=== PATIENT | female | born 1970 | race Caucasian/White ===

== ENCOUNTER 2017-06-21 11:51 | Emergency (ER) | payer OTHER ==
[2017-06-21] MEDS ORDERED: Aspirin Low Dose CHEW TAB* 81 MG PO ONE (12:17)
[2017-06-21 12:58] LABS: ABS Basophils 0 10^3/ul (0-0.2); ABS Eosinophils 0.1 10^3/ul (0-0.6); ABS Lymphocytes 1.3 10^3/ul (1.0-4.8); ABS Monocytes 0.5 10^3/ul (0-0.8); ABS Nucleated RBC 0 10^3/ul; Eosinophil % 2.3 % (0-6); Hematocrit 44 % (35-47); Hemoglobin 14.6 g/dl (12.0-16.0); Lymphocyte % 26.1 % (25-47); Mean Corpuscular HGB Conc 34 g/dl (31-36); Mean Corpuscular Hemoglobin 30 pg (27-31); Mean Corpuscular Volume 91 fL (80-97); Mean Platelet Volume 9 um3 (7.4-10.4); Nucleated Red Blood Cells % 0; Platelet Count 266 10^3/ul (150-450); Red Blood Count 4.79 10^6/ul (4.0-5.4); Red Cell Distribution Width 14 % (10.5-15); White Blood Count 4.9 10^3/ul (3.5-10.8)
--- NOTE | 2017-06-21 13:06 | RAD ---
Indication: Chest pain. Comparison: No relevant prior exams available on the [facility] [place]ACS for comparison. Technique: Upright AP 1235 hours Report: Clear lungs and pleural spaces. Negative for pneumothorax. The heart, pulmonary vasculature, and mediastinal contours are unremarkable. Unremarkable osseous structures and soft tissue contours. IMPRESSION: No evidence for acute intrathoracic disease.
[2017-06-21 13:07] LABS: INR 0.9 (0.77-1.02)
[2017-06-21 13:16] LABS: EGFR Non-African American 102.2 (>60)
[2017-06-21 15:11] VITALS: BP 138/90
--- NOTE | 2017-07-09 11:29 | ED ---
HPI Chest Pain - HPI Summary HPI Summary: Patient is an otherwise healthy 46-year-old female who presents to the ED with chief complaint of chest pain 30 minutes. She endorses resting while first experiencing the chest pain. She endorses significant anxiety over the episode. Denies any cardiac history. Denies family history. She takes no medications. She denies any shortness of breath, coughing, upper respiratory illness recently or other contributing factors. Symptoms are aggravated by nothing and alleviated by nothing. She is resting comfortably on arrival. She does not have a history of anxiety. She states she would just like to get " this checked out". She denies any recent travel, calf pain, OCP use, or smoking history. Has never had a blood clot. Pain is most notably located over the left anterior and does not radiate into the jaw or the arm. - History of Current Complaint Chief Complaint: EDChestPainROMI Time Seen by Provider: 06/21/17 12:09 Hx Obtained From: Patient Onset/Duration: Started Hours Ago Timing: Constant Initial Severity: Moderate Current Severity: Moderate Pain Intensity: 3 Pain Scale Used: 0-10 Numeric Chest Pain Location: Discrete at:, Left Anterior Aggravating Factor(s): Nothing Alleviating Factor(s): Nothing Associated Signs and Symptoms: Positive: Chest Pain - Risk Factors Pulmonary Embolism Risk Factors: Negative TAD Risk Factors: Negative - Allergy/Home Medications Allergies/Adverse Reactions: Allergies Allergy/AdvReac Type Severity Reaction Status Date / Time MS Pregabalin [From Lyrica] Allergy Rash Verified 02/08/16 15:59 PMH/Surg Hx/FS Hx/Imm Hx Previously Healthy: Yes - Surgical History Surgery Procedure, Year, and Place: tubal ligation - Immunization History Hx Pertussis Vaccination: No Immunizations Up to Date: Unable to Obtain/Confirm Infectious Disease History: No Infectious Disease History: Denies: History Other Infectious Disease, Traveled Outside the [place] in Last 30 Days - Family History Known Family History: Positive: Blood Disorder - no immune disorders in FHX - Social History Occupation: Employed Full-time Lives: With Family Alcohol Use: Weekly Alcohol Amount: 3 x's per week approx Hx Substance Use: Yes Substance Use Type: Reports: None Smoking Status (MU): Never Smoked Tobacco Review of Systems Constitutional: Negative Negative: Fever, Chills, Fatigue, Skin Diaphoresis Eyes: Negative Positive: Chest Pain Respiratory: Negative Gastrointestinal: Negative Positive: no symptoms reported, see HPI Musculoskeletal: Negative Neurological: Negative Positive: Anxious All Other Systems Reviewed And Are Negative: Yes Physical Exam Triage Information Reviewed: Yes Vital Signs On Initial Exam: Initial Vitals Temp Pulse Resp BP Pulse Ox 98.6 F 98 18 154/93 100 06/21/17 11:59 06/21/17 11:59 06/21/17 11:59 06/21/17 11:59 06/21/17 11:59 Vital Signs Reviewed: Yes Appearance: Positive: Well-Appearing, Well-Nourished Skin: Positive: Warm, Skin Color Reflects Adequate Perfusion Head/Face: Positive: Normal Head/Face Inspection Eyes: Positive: EOMI, RAFAT, Conjunctiva Clear Neck: Positive: Supple, No Lymphadenopathy Respiratory/Lung Sounds: Positive: Clear to Auscultation, Breath Sounds Present Cardiovascular: Positive: RRR, Pulses are Symmetrical in both Upper and Lower Extremities Musculoskeletal: Positive: Normal, Strength/ROM Intact Neurological: Positive: Speech Normal Psychiatric: Positive: Anxious Diagnostics - Vital Signs Vital Signs Temp Pulse Resp BP Pulse Ox 06/21/17 15:10 97.3 F 79 18 138/90 99 06/21/17 15:07 138/90 06/21/17 15:00 16 06/21/17 14:30 74 22 139/96 100 06/21/17 14:11 74 141/96 100 06/21/17 14:00 70 18 100 06/21/17 13:30 74 19 147/95 100 06/21/17 13:00 73 15 149/99 98 06/21/17 12:31 72 13 155/98 100 06/21/17 12:28 10 06/21/17 11:59 98.6 F 98 18 154/93 100 - Laboratory Lab Results: Lab Results 06/21/17 06/21/17 06/21/17 Range/Units 12:50 12:50 12:50 WBC 4.9 (3.5-10.8) 10^3/ul RBC 4.79 (4.0-5.4) 10^6/ul Hgb 14.6 (12.0-16.0) g/dl Hct 44 (35-47) % MCV 91 (80-97) fL MCH 30 (27-31) pg MCHC 34 (31-36) g/dl RDW 14 (10.5-15) % Plt Count 266 (150-450) 10^3/ul MPV 9 (7.4-10.4) um3 Neut % (Auto) 61.4 (38-83) % Lymph % (Auto) 26.1 (25-47) % [facility] % (Auto) 9.8 H (1-9) % Eos % (Auto) 2.3 (0-6) % Baso % (Auto) 0.4 (0-2) % Absolute Neuts (auto) 3.0 (1.5-7.7) 10^3/ul Absolute Lymphs (auto) 1.3 (1.0-4.8) 10^3/ul Absolute Monos (auto) 0.5 (0-0.8) 10^3/ul Absolute Eos (auto) 0.1 (0-0.6) 10^3/ul Absolute Basos (auto) 0 (0-0.2) 10^3/ul Absolute Nucleated RBC 0 10^3/ul Nucleated RBC % 0 INR (Anticoag Therapy) 0.90 (0.77-1.02) APTT 25.9 L (26.0-36.3) seconds Sodium (133-145) mmol/L Potassium (3.5-5.0) mmol/L Chloride (101-111) mmol/L Carbon Dioxide (22-32) mmol/L Anion Gap (2-11) mmol/L BUN (6-24) mg/dL Creatinine (0.51-0.95) mg/dL Est GFR ( Amer) (>60) Est GFR (Non-Af Amer) (>60) BUN/Creatinine Ratio (8-20) Glucose (70-100) mg/dL Lactic Acid (0.5-2.0) mmol/L Calcium (8.6-10.3) mg/dL Magnesium (1.9-2.7) mg/dL Total Bilirubin (0.2-1.0) mg/dL AST (13-39) U/L ALT (7-52) U/L Alkaline Phosphatase (34-104) U/L Total Creatine Kinase (10-223) U/L CK-MB (CK-2) (0.6-6.3) ng/mL Myoglobin (14.3-65.8) ng/mL Troponin I (<0.04) ng/mL B-Natriuretic Peptide 22 ( - 100) pg/mL Total Protein (6.4-8.9) g/dL Albumin (3.2-5.2) g/dL Globulin (2-4) g/dL Albumin/Globulin Ratio (1-3) TSH (0.34-5.60) mcIU/mL Thyroxine (T4) (6.09-12.23) mcg/mL Beta HCG, Quant mIU/mL 06/21/17 06/21/17 Range/Units 12:50 12:50 WBC (3.5-10.8) 10^3/ul RBC (4.0-5.4) 10^6/ul Hgb (12.0-16.0) g/dl Hct (35-47) % MCV (80-97) fL MCH (27-31) pg MCHC (31-36) g/dl RDW (10.5-15) % Plt Count (150-450) 10^3/ul MPV (7.4-10.4) um3 Neut % (Auto) (38-83) % Lymph % (Auto) (25-47) % [facility] % (Auto) (1-9) % Eos % (Auto) (0-6) % Baso % (Auto) (0-2) % Absolute Neuts (auto) (1.5-7.7) 10^3/ul Absolute Lymphs (auto) (1.0-4.8) 10^3/ul Absolute Monos (auto) (0-0.8) 10^3/ul Absolute Eos (auto) (0-0.6) 10^3/ul Absolute Basos (auto) (0-0.2) 10^3/ul Absolute Nucleated RBC 10^3/ul Nucleated RBC % INR (Anticoag Therapy) (0.77-1.02) APTT (26.0-36.3) seconds Sodium 136 (133-145) mmol/L Potassium 4.0 (3.5-5.0) mmol/L Chloride 104 (101-111) mmol/L Carbon Dioxide 28 (22-32) mmol/L Anion Gap 4 (2-11) mmol/L BUN 15 (6-24) mg/dL Creatinine 0.63 (0.51-0.95) mg/dL Est GFR ( Amer) 131.4 (>60) Est GFR (Non-Af Amer) 102.2 (>60) BUN/Creatinine Ratio 23.8 H (8-20) Glucose 100 (70-100) mg/dL Lactic Acid 0.7 (0.5-2.0) mmol/L Calcium 9.2 (8.6-10.3) mg/dL Magnesium 2.2 (1.9-2.7) mg/dL Total Bilirubin 0.40 (0.2-1.0) mg/dL AST 19 (13-39) U/L ALT 20 (7-52) U/L Alkaline Phosphatase 79 (34-104) U/L Total Creatine Kinase 78 (10-223) U/L CK-MB (CK-2) 1.2 (0.6-6.3) ng/mL Myoglobin 20.4 (14.3-65.8) ng/mL Troponin I 0.00 (<0.04) ng/mL B-Natriuretic Peptide ( - 100) pg/mL Total Protein 6.7 (6.4-8.9) g/dL Albumin 4.1 (3.2-5.2) g/dL Globulin 2.6 (2-4) g/dL Albumin/Globulin Ratio 1.6 (1-3) TSH 1.60 (0.34-5.60) mcIU/mL Thyroxine (T4) 5.57 L (6.09-12.23) mcg/mL Beta HCG, Quant 1.62 mIU/mL Result Diagrams: 06/21/17 12:50 06/21/17 12:50 Lab Statement: Any lab studies that have been ordered have been reviewed, and results considered in the medical decision making process. Chest Pain Course/Dx - Course Course Of Treatment: During the course of treatment the patient is evaluated for chest pain. She denies any chest pain currently, but experienced chest pain 30 minutes prior to arrival for approximately 30 minutes. She has no history of cardiac events. She takes no medications. Has no history of anxiety. She is slightly anxious during physical exam. No acute findings on physical exam, lungs clear to auscultation bilaterally and regular rate and rhythm. All labs obtained and within normal limits except for a slightly low thyroid study. Troponin 0.00. Chest x-ray shows no acute findings. The patient is made aware of all results it is okay for discharge at this time. For any worsening or changing symptoms, she will return to the ED. She will also follow up with her PCP this week. I am not concerned over a CO, PE or any other more emergent cardiac event at this time. - Chest Pain Differential Diagnosis/HQI/PQRI: Angina, Chest Wall, Pulmonary Embolism - Diagnoses Provider Diagnoses: Chest pain Discharge - Discharge Plan Condition: Stable Disposition: HOME Patient Education Materials: Chest Pain (ED) Referrals: Estephanie Palomo MD [Primary Care Provider] - Additional Instructions: Please follow-up with your PCP All lab work looked okay today Your blood pressure was stable
== END 2017-06-21 15:11 | disposition home or self-care (01) ==
LOC: ED 11:51
DX: R07.9 Chest pain, unspecified (principal); F41.9 Anxiety disorder, unspecified
CPT/HCPCS: 36415; 71045; 80053; 82550; 82553; 83605; 83735; 83874; 83880; 84436; 84443; 84484; 84702; 85025; 85610; 85730; 93005; 99282; A9270-GY

== ENCOUNTER → 2017-09-19 10:24 | Day surgery (SDC) | payer OTHER ==
[~2017-09-19 10:24] MED LIST: Buffered Lidocaine 0.9% SYRIN* 5 ML/SYR SYRINGE INTRADERM ONE; Lidocaine 2% PF * 5 ML VIAL ONE; Midazolam* 1 MG/ML 2 ML VIAL (2 MG) ONE; Propofol* 10 MG/ML 20 ML BTL IV PUSH ONE; ceFAZolin 2 GM PREMIX (*) 2 GM/50 ML BAG IVPB ONE; fentaNYL* 50 MCG/ML 2 ML VIAL (100 MCG VIAL) ONE
[2017-09-19 10:52] VITALS: BP 155/112
== END | disposition home or self-care (01) ==
LOC: OR 10:24
PROVIDERS: ATTEND Podiatrist
DX: M20.12 Hallux valgus (acquired), left foot (principal); Z53.9 Procedure and treatment not carried out, unspecified reason
CPT/HCPCS: J0690; J2250; J2704; J3010

== ENCOUNTER 2017-09-19 11:42 | Emergency (ER) | payer OTHER ==
[2017-09-19] MEDS ORDERED: LORazepam TAB(*) 1 MG PO ONE (12:27)
[2017-09-19 14:53] VITALS: BP 170/111
--- NOTE | 2017-09-19 21:42 | ED ---
Lei Pope Natalie, scribed for Ramon Rowan MD on 09/19/17 at 1232 . Hypertension - HPI Summary HPI Summary: The pt is a 46 y/o F presenting to the ED c/o dizziness and anxiety attack, causing a hypertensive episode this morning. She was on the operation floor for a bunion surgery, but her BP was too high, and she was sent to the ED before the surgery. She states she is more relaxed in the ED, but her BP is still elevated. She is not experiencing any other symptoms at the moment. During her pre-op visit, her first BP reading was high, and the second was normal. She does not usually have high blood pressure, but she has had similar episodes prior to hip surgery. She is not currently being treated for HTN by her PCP. The pt has a hx of anxiety without medication. - History of Current Complaint Chief Complaint: EDHypertension Stated Complaint: BP ISSUE Time Seen by Provider: 09/19/17 12:09 Hx Obtained From: Patient Onset/Duration: Started Minutes Ago, Still Present Timing: Constant Aggravating Factor(s): Other: - anxiety before surgery Associated Signs & Symptoms: Anxiety/Stress, Dizziness Related Hx: Similar Episode - prior to hip surgery and pre-op visit - Allergies/Home Medications Allergies/Adverse Reactions: Allergies Allergy/AdvReac Type Severity Reaction Status Date / Time pregabalin [From Lyrica] Allergy Rash Verified 09/19/17 10:39 Home Medications: Home Medications NK [No Home Medications Reported] 09/19/17 [History Confirmed 09/19/17] PMH/Surg Hx/FS Hx/Imm Hx Respiratory History: Reports: Hx Asthma - pneumonia recently occas wheezing Musculoskeletal History: Reports: Hx Arthritis - osteo generalized, Other Musculoskeletal History - bunion on left foot Sensory History: Reports: Hx Contacts or Glasses Denies: Hx Hearing Aid Opthamlomology History: Reports: Hx Contacts or Glasses Psychiatric History: Reports: Hx Anxiety - no meds - Surgical History Surgery Procedure, Year, and Place: tubal ligation 2011. right total hip replacement 2017. cervical cerclage 05/2011 Hx Anesthesia Reactions: No Infectious Disease History: No Infectious Disease History: Denies: History Other Infectious Disease, Traveled Outside the [place] in Last 30 Days - Family History Known Family History: Positive: Blood Disorder - no immune disorders in FHX - Social History Alcohol Use: Weekly Alcohol Amount: 3 x's per week approx Hx Substance Use: Yes Substance Use Type: Reports: None Smoking Status (MU): Former Smoker Review of Systems Neurological: Other - dizziness Positive: Anxious All Other Systems Reviewed And Are Negative: Yes Physical Exam - Summary Physical Exam Summary: Appearance: The patient is well-nourished in no acute distress and in no acute pain. Skin: The skin is warm and dry and skin color reflects adequate perfusion. HEENT: The head is normocephalic and atraumatic. The pupils are equal and reactive. The conjunctivae are clear and without drainage. Nares are patent and without drainage. Mouth reveals moist mucous membranes and the throat is without erythema and exudate. The external ears are intact. The ear canals are patent and without drainage. The tympanic membranes are intact. Neck: the neck is supple with full range of motion and non-tender. There are no carotid bruits. There is no neck vein distension. Respiratory: Chest is non-tender. Lungs are clear to auscultation and breath sounds are symmetrical and equal. Cardiovascular: Heart is regular rate and rhythm. There is no murmur or rub auscultated. There is no peripheral edema and pulses are symmetrical and equal. Abdomen: The abdomen is soft and non-tender. There are normal bowel sounds heard in all four quadrants and there is no organomegaly palpated. Musculoskeletal: There is no back tenderness noted. Extremities are non-tender with full range of motion. There is good capillary refill. There is no peripheral edema or calf tenderness elicited. Neurological: Patient is alert and oriented to person, place and time. The patient has symmetrical motor strength in all four extremities. Cranial nerves are grossly intact. Deep tendon reflexes are symmetrical and equal in all four extremities. Psychiatric: The patient has an appropriate affect and does not exhibit any anxiety or depression. Triage Information Reviewed: Yes Vital Signs On Initial Exam: Initial Vitals Temp Pulse Resp BP Pulse Ox 98.2 F 70 16 168/116 100 09/19/17 12:04 09/19/17 12:04 09/19/17 12:04 09/19/17 12:04 09/19/17 12:04 Vital Signs Reviewed: Yes Diagnostics - Vital Signs Vital Signs Temp Pulse Resp BP Pulse Ox 09/19/17 12:04 98.2 F 70 16 168/116 100 - Laboratory Lab Statement: Any lab studies that have been ordered have been reviewed, and results considered in the medical decision making process. Re-Evaluation - Re-Evaluation First Eval Re-Evaluation Time: 13:42 Change: Improved Comment: The patient is feeling more realxed. She will be discharged. She is agreeable with this plan. Hypertension Course/Dx - Course Course Of Treatment: Ms. Holden was here for bunion surgery but her blood pressure was too high so she was referred down here. She felt that is was just ' white coat syndrome' and therefore I gave her an Ativan. She got quite relaxed but her blood pressure didn't budge much. Her diastolic continued to hover around 110 - 115. She was completly asymptomatic though so I will refer her to her PCP first of the week. She is to return if she develops any symptoms and agrees. - Diagnoses Provider Diagnoses: Hypertension Discharge - Sign-Out/Discharge Documenting (check all that apply): Discharge/Admit/Transfer - Discharge Plan Condition: Stable Disposition: HOME Referrals: Eddie Garber MD [Medical Doctor] - 09/22/17 Additional Instructions: Follow up with Dr. Brown next week. Please return to the emergency department for any new or worsening symptoms. - Billing Disposition and Condition Condition: STABLE Disposition: HOME The documentation as recorded by the Lei smart Natalie accurately reflects the service I personally performed and the decisions made by me, Ramon Rowan MD.
== END 2017-09-19 14:31 | disposition home or self-care (01) ==
LOC: ED 11:42
DX: I10 Essential (primary) hypertension (principal); R42 Dizziness and giddiness; Z87.891 Personal history of nicotine dependence
CPT/HCPCS: 99283; A9270-GY

== ENCOUNTER 2017-10-18 15:34 | Emergency (ER) | payer OTHER ==
[2017-10-18 15:55] VITALS: BP 165/105
[2017-10-18] MEDS ORDERED: LORazepam TAB(*) 1 MG PO ONE (16:25)
[2017-10-18] MEDS ORDERED: Ibuprofen TAB* 600 MG PO ONE (16:25)
--- NOTE | 2017-10-18 16:38 | UC ---
Neck Pain HPI - HPI Summary HPI Summary: Patient comes to the urgent care today with her . Patient complains of 6 days of worsening neck pain and musculoskeletal tightness. She has had an MRI and MRA lumbar puncture and CT scan in the past 4 days of which are negative [facility] and was told to follow up neurology which she has an appointment for the middle of November and with her primary care doctor who she's hoping to see this week. Patient has a history of some back pain years ago, she had some lower back pain was treated with steroid injections at the pain clinic in [place] and no further patient reported instances. she has a history of some anxiety she was treated for 3 weeks with Zoloft 25 mg did not report back to her primary care doctor that it was not helping and getting dose increased. Patient also reports that she is only sleeping 4-6 hours a night and a broken fitful sleep. Patient does endorse anxiety, but denies suicidal or homicidal ideation. - History of Current Complaint Hx Obtained From: Patient Hx Last Menstrual Period: 09/12/17 ?: No Onset/Duration Of Injury/Symptoms: Days - 6-7 Timing: Constant Onset/Duration: Sudden Onset Pain Intensity: 7 Pain Scale Used: 0-10 Numeric Location: Diffuse - left trapezious muscle Character: Stiff, Spasmotic Alleviating Factors: Nothing Associated Signs & Symptoms: Positive: Paresthesia - tingling in left had after papation of neck and shoulder <Cecelia Tinoco - Last Filed: 10/18/17 17:44> <Kevin Isbell - Last Filed: 10/18/17 18:02> - History of Current Complaint Chief Complaint: UCHeadache Stated Complaint: HEADACHE,NECK PAIN Time Seen by Provider: 10/18/17 15:48 - Allergies/Home Medications Allergies/Adverse Reactions: Allergies Allergy/AdvReac Type Severity Reaction Status Date / Time pregabalin [From Lyrica] Allergy Rash Verified 10/18/17 15:55 Home Medications: Home Medications Acetaminophen [Acetaminophen Extra Strength] 500 mg PO Q6H PRN 10/18/17 [ History Confirmed 10/18/17] PMH/Surg Hx/FS Hx/Imm Hx Previously Healthy: No Psychological History: Anxiety - untreated Other Psychological History: untreated anxiety and insomnia - Surgical History Surgical History: Yes Surgery Procedure, Year, and Place: tubal ligation 2011. right total hip replacement 2017. cervical cerclage 05/2011 - Family History Known Family History: Positive: Blood Disorder - no immune disorders in FHX - Social History Occupation: Works From/At Home Lives: With Family Alcohol Use: Occasionally Alcohol Amount: 3 x's per week approx Substance Use Type: None Smoking Status (MU): Former Smoker When Did the Patient Quit Smoking/Using Tobacco: <Cecelia Tinoco - Last Filed: 10/18/17 17:44> Review Of Systems Constitutional: Positive: Negative Skin: Positive: Negative Eyes: Positive: Negative ENT: Positive: Negative Respiratory: Positive: Negative Cardiovascular: Positive: Negative Gastrointestinal: Positive: Negative Genitourinary: Positive: Negative Musculoskeletal: Positive: Myalgia Neurological: Positive: Paresthesia - left hand with muscle examination in left shoulder Psychological: Positive: Negative All Other Systems Reviewed And Are Negative: No <Cecelia Tinoco - Last Filed: 10/18/17 17:44> Physical Exam Triage Information Reviewed: Yes Appearance: Well-Appearing, Well-Nourished, Pain Distress Vital Signs: Initial Vital Signs Temp 98.7 F 10/18/17 15:42 Pulse 105 10/18/17 15:42 Resp 18 10/18/17 15:42 BP 165/105 10/18/17 15:42 Pulse Ox 100 10/18/17 15:42 Vital Signs Reviewed: Yes Eye Exam: Normal Eyes: Positive: Conjunctiva Clear ENT Exam: Normal ENT: Positive: Normal ENT inspection, Hearing grossly normal, Pharynx normal, TMs normal, Uvula midline. Negative: Nasal congestion, Nasal drainage, Trismus , Muffled voice, Hoarse voice, Dental tenderness, Sinus tenderness Dental Exam: Normal Neck exam: Normal Neck: Positive: Supple, No Lymphadenopathy, Tenderness @ - left side of neck Respiratory Exam: Normal Respiratory: Positive: Chest non-tender, Lungs clear, Normal breath sounds, No respiratory distress, No accessory muscle use Cardiovascular Exam: Normal Cardiovascular: Positive: RRR, No Murmur, Pulses Normal, Brisk Capillary Refill Musculoskeletal Exam: Other Musculoskeletal: Positive: ROM Intact, No Edema, Strength Limited @ - in left arm less than right Neurological Exam: Normal Neurological: Positive: Alert, Muscle Tone Normal Psychological Exam: Normal Skin Exam: Normal <Cecelia Tinoco - Last Filed: 10/18/17 17:44> Vital Signs: Initial Vital Signs Temp 98.7 F 10/18/17 15:42 Pulse 105 10/18/17 15:42 Resp 18 10/18/17 15:42 BP 165/105 10/18/17 15:42 Pulse Ox 100 10/18/17 15:42 <Kevin Isbell - Last Filed: 10/18/17 18:02> Diagnostics - Radiology No standard instances Xray Interpretation: Positive (See Comments) Radiology Interpretation Completed By: Radiologist - Patient Name: JOSE LIZARRAGA Medical Record#: [id number] Ordering Physician: Cecelia Tinoco NP Acct.#: [id number] : 1970 Age: 47 Sex: F Location: [facility] Exam Date: 10/18/17 1630 ADM Status: REG ER Order Information: THORACIC SPINE 2 VWS Accession Number: [id number] CPT: 64680 Indication: Neck and upper back pain. Recent pneumonia. Comparison: No relevant prior exams available on the [facility] PACS for comparison. Technique: AP and lateral views thoracic spine. Report: Normal thoracic kyphosis. Negative for fracture or suspicious focal osseous lesions. Multilevel mild disc space narrowing at the mid thoracic spine. Minimal associated vertebral endplate osteophytosis. Unremarkable paraspinal soft tissue contours. IMPRESSION: Mild degenerative spondylosis. <Electronically signed by Rufus Fernando MD in [place]> 10/18/171711 Dictated By: Rufus Fernando MD Dictated Date/ Time: 10/18/171711 Transcribed Date/Time: 10/18/171709 Copy to: CC: Estephanie Palomo MD; Cecelia Tinoco INDUSTRIAL PHARMACIST; Kevin Isbell MD Imaging - [facility] Imaging - [facility] [place] [address] [address] ph [phone] ph [phone] ph ([phone]) 1 of Patient Name: JOSE LIZARRAGA Medical Record#: [id number] Ordering Physician : Cecelia Tinoco NP Acct.#: [id number] : 1970 Age: 47 Sex: F Location: [facility] Exam Date: 10/18/17 1630 ADM Status: REG ER Order Information: SP CERVICAL 4+VWS Accession Number: [id number] CPT: 59633 Indication: Neck pain. Decreased range of motion. Recent pneumonia. Comparison: No relevant prior exams available on the [facility] PACS for comparison. Technique: AP, open- mouth odontoid, lateral, and oblique views cervical spine. Report: Straightening relative to normal cervical lordosis without facet subluxation at any level. Negative for fracture or conspicuous focal osseous lesions. Multilevel mild vertebral endplate osteophytosis. Mild disc space narrowing at C5-C6 and C6-C7. The oblique views are negative for osseous foraminal stenosis. Unremarkable prevertebral soft tissue contours. IMPRESSION: Multilevel mild degenerative spondylosis. <Electronically signed by Rufus Fernando MD in [place]> 10/18/171708 Dictated By: Rufus Fernando MD Dictated Date/Time: 10/18/171708 Transcribed Date/Time: 10/18/171706 Copy to: CC:Estephanie Palomo MD; Cecelia Tinoco INDUSTRIAL PHARMACIST; Kevin Isbell MD Imaging - [facility] Imaging - [place] [facility] [address] [place] [address] ph ) ph ([phone] ph ([phone]) 1 of <Cecelia Tinoco - Last Filed: 10/18/17 17:44> Neck Pain Course/Dx - Course Course Of Treatment: medrol dose pack, soma, lab studies for LYME, follow bp and symptoms with pcp - Differential Dx/Diagnosis Provider Diagnoses: elevated blood pressure with out dx of hypertension, muscle spasm, mild multilevel degenerative spine disorder <Cecelia Tinoco - Last Filed: 10/18/17 17:44> Discharge - Sign-Out/Discharge Documenting (check all that apply): Discharge/Admit/Transfer - Billing Disposition and Condition Condition: STABLE Disposition: Home <Cecelia Tinoco - Last Filed: 10/18/17 17:44> - Billing Disposition and Condition Condition: STABLE Disposition: Home <Kevin Isbell - Last Filed: 10/18/17 18:02> - Discharge Plan Condition: Stable Disposition: HOME Prescriptions: Carisoprodol [Soma] 350 mg PO TID PRN #15 tablet MDD 3 PRN Reason: muscle spasm methylPREDNISolone [Medrol] 4 mg PO .SEE ELIZABETH INSTRUCTION #1 packet Patient Education Materials: Lyme Disease (ED), Hypertension (ED), Muscle Spasm (ED), Insomnia (ED), Acute Neck Pain (ED) Referrals: Estephanie Palomo MD [Primary Care Provider] - 1 Week Additional Instructions: Per institutional requirements, I have reviewed the chart, however, I was not consulted specifically or made aware of this patient by the above midlevel provider. I did not personally evaluate, interact with , or disposition this patient.
--- NOTE | 2017-10-18 17:13 | RAD ---
Indication: Neck pain. Decreased range of motion. Recent pneumonia. Comparison: No relevant prior exams available on [place] [facility] [place]. Technique: AP, open-mouth odontoid, lateral, and oblique views cervical spine. Report: Straightening relative to normal cervical lordosis without facet subluxation at any level. Negative for fracture or conspicuous focal osseous lesions. Multilevel mild vertebral endplate osteophytosis. Mild disc space narrowing at C5-C6 and C6-C7. The oblique views are negative for osseous foraminal stenosis. Unremarkable prevertebral soft tissue contours. IMPRESSION: Multilevel mild degenerative spondylosis.
--- NOTE | 2017-10-18 17:15 | RAD ---
Indication: Neck and upper back pain. Recent pneumonia. Comparison: No relevant prior exams available on the [facility] [place] for comparison. Technique: AP and lateral views thoracic spine. Report: Normal thoracic kyphosis. Negative for fracture or suspicious focal osseous lesions. Multilevel mild disc space narrowing at the mid thoracic spine. Minimal associated vertebral endplate osteophytosis. Unremarkable paraspinal soft tissue contours. IMPRESSION: Mild degenerative spondylosis.
== END 2017-10-18 17:46 | disposition home or self-care (01) ==
LOC: UCCORT 15:34
DX: M62.838 Other muscle spasm (principal); R03.0 Elevated blood-pressure reading, without diagnosis of hypertension; M47.899 Other spondylosis, site unspecified; Z88.8 Allergy status to other drugs, medicaments and biological substances; Z87.891 Personal history of nicotine dependence
CPT/HCPCS: 36415; 72050; 72070; 86140; 86618; 99212; A9270-GY; G0463

== ENCOUNTER 2017-11-18 13:22 | Emergency (ER) | payer OTHER ==
[2017-11-18 13:39] VITALS: BP 118/94
--- NOTE | 2017-11-18 13:51 | UC ---
General HPI - HPI Summary HPI Summary: Patient is complaining of 3 week history of cough and wheezing. She admits to some shortness of breath as well as a history of asthma. She denies any fever. She also notes that she has sneezing and itchy watery eyes. She offers that she has a history of allergies but instead no self treatment. - History of Current Complaint Chief Complaint: UCRespiratory Stated Complaint: COUGH Time Seen by Provider: 11/18/17 13:45 Hx Obtained From: Patient Hx Last Menstrual Period: 11/18/17 Onset/Duration: Gradual Onset Timing: Constant Pain Intensity: 3 Associated Signs & Symptoms: Positive: Cough, SOB, Wheezing. Negative: Chest Pain, Fever - Allergy/Home Medications Allergies/Adverse Reactions: Allergies Allergy/AdvReac Type Severity Reaction Status Date / Time pregabalin [From Lyrica] Allergy Rash Verified 10/18/17 15:55 Home Medications: Home Medications Dm/Acetaminophen/Doxylamine [Night Cold-Flu Relief Liq Gel] 1 each PO DAILY 02/26 [History Confirmed 11/18/17] PMH/Surg Hx/FS Hx/Imm Hx - Additional Past Medical History Additional PMH: ALLERGIES Respiratory History: Asthma - Surgical History Surgical History: Yes Surgery Procedure, Year, and Place: tubal ligation 2011. right total hip replacement 2017. 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 Lives: With Family Alcohol Use: Occasionally Alcohol Amount: 3 x's per week approx Substance Use Type: None Smoking Status (MU): Former Smoker When Did the Patient Quit Smoking/Using Tobacco: Household Exposure Type: Cigarettes - Immunization History Vaccination Up to Date: Yes Review of Systems Constitutional: Negative Skin: Negative Eyes: Negative ENT: Negative Respiratory: Shortness Of Breath, Cough Cardiovascular: Negative Gastrointestinal: Negative Genitourinary: Negative Motor: Negative Neurovascular: Negative Musculoskeletal: Negative Neurological: Negative Psychological: Negative Is Patient Immunocompromised?: No All Other Systems Reviewed And Are Negative: Yes Physical Exam Triage Information Reviewed: Yes Appearance: Well-Appearing, Well-Nourished Vital Signs: Initial Vital Signs Temp 98.0 F 11/18/17 13:33 Pulse 90 11/18/17 13:33 Resp 17 11/18/17 13:33 BP 118/94 11/18/17 13:33 Pulse Ox 97 11/18/17 13:33 Vital Signs Reviewed: Yes Eyes: Positive: Conjunctiva Clear ENT: Positive: Pharynx normal, TMs normal. Negative: Nasal congestion, Nasal drainage Neck: Positive: Supple, Nontender, No Lymphadenopathy Respiratory: Positive: No respiratory distress, Decreased breath sounds, Wheezing - occasional Cardiovascular: Positive: RRR, No Murmur Abdomen Description: Positive: Nontender, No Organomegaly, Bruit Bowel Sounds: Positive: Present Musculoskeletal: Positive: ROM Intact Neurological: Positive: Alert Psychological: Positive: Age Appropriate Behavior Skin Exam: Normal Course/Dx - Course Course Of Treatment: no concern for infection c/w asthma and allergies. - Differential Dx - Multi-Symptom Provider Diagnoses: allergies. asthma flare. Discharge - Sign-Out/Discharge Documenting (check all that apply): Discharge/Admit/Transfer - Discharge Plan Condition: Stable Disposition: HOME Prescriptions: Albuterol HFA INHALER* [Ventolin HFA Inhaler*] 2 puff INH Q6H #1 mdi predniSONE TAB* [Deltasone 20 MG TAB*] 40 mg PO DAILY 5 Days #10 tab Patient Education Materials: Asthma (DC), Allergies (ED) Referrals: Estephanie Palomo MD [Primary Care Provider] - 6 Days Additional Instructions: START ZYRTEC OVER THE COUNTER PER LABEL - Billing Disposition and Condition Condition: STABLE Disposition: Home
== END 2017-11-18 13:59 | disposition home or self-care (01) ==
LOC: UCCORT 13:22
DX: J45.909 Unspecified asthma, uncomplicated (principal); R05 Cough; Z96.641 Presence of right artificial hip joint; Z88.8 Allergy status to other drugs, medicaments and biological substances; Z83.2 Family history of diseases of the blood and blood-forming organs and certain disorders involving the immune mechanism; Z87.891 Personal history of nicotine dependence
CPT/HCPCS: 99212; G0463

== ENCOUNTER 2018-03-17 08:22 | Emergency (ER) | payer OTHER ==
[2018-03-17 08:38] VITALS: BP 170/112
[2018-03-17] MEDS ORDERED: Fluorescein Sodium TOPICAL* 1 MG TEST STRIP OPHTHALMIC ONE (08:43)
[2018-03-17] MEDS ORDERED: Tetracaine 0.5% OPTH.SOL 15ML* BTL RIGHT EYE ONE (08:45)
[2018-03-17] MEDS ORDERED: Tetracaine 0.5% OPTH.SOL 4 ML* 1 DROP BTL ONE (08:47)
--- NOTE | 2018-03-17 09:00 | UC ---
Eye Complaint HPI - HPI Summary HPI Summary: right eye pain and tearing x 1 day foreign body sensation / eyelash in her right eye mild right eye pain and redness of right eye , no eye discharge, no change in vision - History of Current Complaint Chief Complaint: UCEye Stated Complaint: RT EYE PAIN Time Seen by Provider: 03/17/18 08:43 Hx Obtained From: Patient Hx Last Menstrual Period: 11/18/17 ?: No Onset/Duration: Gradual Onset, Lasting Days - 1, Still Present Timing: Constant Severity Initially: Moderate Severity Currently: Moderate Pain Intensity: 3 Location of Injury: Conjunctiva - right Character: Dull, Foreign Body Sensation Aggravating Factor(s): Blinking Alleviating Factor(s): Nothing Associated Signs And Symptoms: Positive: Drainage (Clear) - right eye. Negative : Photophobia, Drainage (Purulent), Vision Impairment Bilateral, Vision Impairment Right, Vision Impairment Left, Fever, Swelling - Allergies/Home Medications Allergies/Adverse Reactions: Allergies Allergy/AdvReac Type Severity Reaction Status Date / Time pregabalin [From Lyrica] Allergy Rash Verified 03/17/18 08:33 PMH/Surg Hx/FS Hx/Imm Hx Previously Healthy: Yes - Surgical History Surgical History: Yes Surgery Procedure, Year, and Place: tubal ligation 2011. right total hip replacement 2017. cervical cerclage 05/2011 - Family History Known Family History: Positive: Blood Disorder - no immune disorders in FHX - Social History Alcohol Use: Occasionally Alcohol Amount: 3 x's per week approx Substance Use Type: None Smoking Status (MU): Former Smoker When Did the Patient Quit Smoking/Using Tobacco: Household Exposure Type: Cigarettes - Immunization History Vaccination Up to Date: Yes Review of Systems Constitutional: Negative Skin: Negative Eyes: Eye Redness - right eye ENT: Negative Cardiovascular: Negative Gastrointestinal: Negative Genitourinary: Negative Is Patient Immunocompromised?: No All Other Systems Reviewed And Are Negative: Yes Physical Exam Triage Information Reviewed: Yes Appearance: Well-Appearing, No Pain Distress, Well-Nourished Vital Signs: Initial Vital Signs Temp 98 F 03/17/18 08:33 Pulse 108 03/17/18 08:33 Resp 18 03/17/18 08:33 BP 170/112 03/17/18 08:33 Pulse Ox 100 03/17/18 08:33 Vital Signs Reviewed: Yes Eye Exam: Normal Eyes: Positive: Conjunctiva Inflamed - right eye, Other: - minimal corneal abrasion right eye ENT: Positive: Normal ENT inspection, Hearing grossly normal, Pharynx normal Neck exam: Normal Neck: Positive: Supple, Nontender Respiratory: Positive: Chest non-tender, Lungs clear, Normal breath sounds, No respiratory distress Cardiovascular: Positive: RRR, No Murmur, Pulses Normal Skin Exam: Normal Eye Complaint Course/Dx - Differential Dx/Diagnosis Provider Diagnoses: corneal abrasion right eye Discharge - Sign-Out/Discharge Documenting (check all that apply): Patient Departure All imaging exams completed and their final reports reviewed: No Studies - Discharge Plan Condition: Stable Disposition: HOME Patient Education Materials: Corneal Abrasion (ED) Referrals: Estephanie Palomo MD [Primary Care Provider] - If Needed - Billing Disposition and Condition Condition: STABLE Disposition: Home
== END 2018-03-17 08:59 | disposition home or self-care (01) ==
LOC: UCCORT 08:22
DX: S05.01XA Injury of conjunctiva and corneal abrasion without foreign body, right eye, initial encounter (principal); X58.XXXA Exposure to other specified factors, initial encounter; Y92.9 Unspecified place or not applicable; Z87.891 Personal history of nicotine dependence
CPT/HCPCS: 99212; A9270-GY; G0463

== ENCOUNTER 2018-06-03 14:59 | Emergency (ER) | payer SELFPAY ==
[2018-06-03 15:35] VITALS: BP 151/104
--- NOTE | 2018-06-03 15:51 | UC ---
Psychiatric Complaint HPI - HPI Summary HPI Summary: Pt c/o generalized anxiety and chronic insomnia. Pt states that she has difficulty sleeping and has not slept in days. She has a hx of anxiety and depression. Was given zoloft but only took it for 2 weeks and did not follow up with her PCP. Pt is requesting "something to allow her to sleep". Denies thoughts of hurting self or others. - History Of Current Complaint Chief Complaint: UCGeneralIllness Stated Complaint: ANXIETY/NOT SLEEPING Time Seen by Provider: 06/03/18 15:15 Hx Obtained From: Patient Hx Last Menstrual Period: 2 months ago; hx tubal ligation ?: No Onset/Duration: Gradual Onset, Lasting Weeks, Still Present Timing: Constant - worse at night Severity Initially: Mild Severity Currently: Moderate Character: Anxious Aggravating Factor(s): Medication Non-compliance Alleviating Factor(s): Other - has not been compliant with medications Associated Signs And Symptoms: Sleep Disturbance - Risk Factor(s) Completed Suicide Risk Factors: Negative - Allergies/Home Medications Allergies/Adverse Reactions: Allergies Allergy/AdvReac Type Severity Reaction Status Date / Time pregabalin [From Lyrica] Allergy Rash Verified 06/03/18 15:25 PMH/Surg Hx/FS Hx/Imm Hx Previously Healthy: Yes Psychological History: Anxiety, Depression - Surgical History Surgical History: Yes Surgery Procedure, Year, and Place: tubal ligation 2011. right total hip replacement 2017. cervical cerclage 05/2011 - Family History Known Family History: Positive: Blood Disorder - no immune disorders in FHX - Social History Occupation: Employed Full-time Lives: With Family Alcohol Use: Weekly Alcohol Amount: 1 per week approx Substance Use Type: None Smoking Status (MU): Former Smoker Have You Smoked in the Last Year: No When Did the Patient Quit Smoking/Using Tobacco: Household Exposure Type: Cigarettes - Immunization History Vaccination Up to Date: Yes Review of Systems All Other Systems Reviewed And Are Negative: Yes Constitutional: Positive: Negative Skin: Positive: Negative Eyes: Positive: Negative ENT: Positive: Negative Respiratory: Positive: Negative Cardiovascular: Positive: Negative Gastrointestinal: Positive: Negative Genitourinary: Positive: Negative Motor: Positive: Negative Neurovascular: Positive: Negative Musculoskeletal: Positive: Negative Neurological: Positive: Negative Psychological: Positive: Anxious Is Patient Immunocompromised?: No Physical Exam Triage Information Reviewed: Yes Appearance: Well-Appearing Vital Signs: Initial Vital Signs Temp 98.7 F 06/03/18 15:25 Pulse 104 06/03/18 15:25 Resp 16 06/03/18 15:25 BP 151/104 06/03/18 15:25 Pulse Ox 100 06/03/18 15:25 Vital Signs Reviewed: Yes Eye Exam: Normal ENT Exam: Normal Dental Exam: Normal Neck exam: Normal Respiratory Exam: Normal Cardiovascular: Positive: Tachycardia Musculoskeletal Exam: Normal Neurological Exam: Normal Neurological: Positive: Alert Psychological Exam: Normal Skin Exam: Normal Psych Complaint Course/Dx - Course Course Of Treatment: I discussed wiht the pt the need to follow upwith her PCP for residential management of her stated anxiety and depression. Pt verbalized understanding and agreed to plan of care. - Differential Dx/Diagnosis Differential Diagnosis/HQI/PQRI: Anxiety, Depression Provider Diagnosis: Anxiety, Sleep disturbance, unspecified Discharge - Sign-Out/Discharge Documenting (check all that apply): Patient Departure All imaging exams completed and their final reports reviewed: No Studies - Discharge Plan Condition: Stable Disposition: HOME Prescriptions: LORazepam TAB(*) [Ativan 0.5 MG TAB (*)] 0.5 mg PO BEDTIME PRN #6 tab MDD 1 PRN Reason: Anxiety Patient Education Materials: Generalized Anxiety Disorder (ED), Insomnia (ED) Referrals: Estephanie Palomo MD [Primary Care Provider] - As Soon As Possible Additional Instructions: PLEASE FOLLLOW UP IMMEDIATELY WITH YOUR PCP. IF YOUR SYMPTOMS WORSEN, PLEASE SEEK CARE AT THE CLOSEST EMERGENCY ROOM. - Billing Disposition and Condition Condition: STABLE Disposition: Home
== END 2018-06-03 15:59 | disposition home or self-care (01) ==
LOC: UCCORT 14:59
DX: G47.9 Sleep disorder, unspecified (principal); F41.1 Generalized anxiety disorder; R00.0 Tachycardia, unspecified; F32.9 Major depressive disorder, single episode, unspecified; Z96.641 Presence of right artificial hip joint; Z87.891 Personal history of nicotine dependence; Z88.8 Allergy status to other drugs, medicaments and biological substances
CPT/HCPCS: 99212; G0463